=== PATIENT | female | born 1985 | race African-American/Black ===

== ENCOUNTER 2019-01-13 11:37 | Emergency (ER) | payer OTHER ==
[~2019-01-13] VITALS: Ht 157.5 cm; Wt 99.8 kg
[~2019-01-13 11:37] MED LIST: ALBUTEROL INHAL17 GM IH; IBUPROFEN 600600 M1 PO; LORTABELXR PO; NORCO 5-325 TA1 EACH PO
[2019-01-13 11:41] VITALS: BP 130/71
[2019-01-13] MEDS ORDERED: PENICILLIN V P500 MG PO (12:10)
[2019-01-13] MEDS ORDERED: NORCO 5-325 TA1 EACH PO (12:11)
== END 2019-01-13 12:22 | disposition home or self-care (01) ==
LOC: ER 11:37
DX: K08.89 Other specified disorders of teeth and supporting structures (principal); R22.0 Localized swelling, mass and lump, head

== ENCOUNTER 2019-08-29 16:25 | Emergency (ER) | payer BC, OTHER ==
[~2019-08-29] VITALS: Ht 157.5 cm; Wt 99.8 kg
[~2019-08-29 16:25] MED LIST changes: +PENICILLIN V P500 MG PO
[2019-08-29 17:04] LABS: ABSOLUTE NEUTROPHILS 3.8 thou/uL (1.4-8.2); BASOPHILS 0.6 % (0.0-2.0); EOSINOPHILS 2.6 % (0.0-3.0); HEMATOCRIT 36.7 % (37.0-47.0); HEMOGLOBIN 12.3 gm/dL (12.0-15.0); LYMPHOCYTES 28.9 % (24.0-44.0); MCHC 33.6 g/dL (28.0-37.0); MCV 83.2 fL (80.0-100.0); MONOCYTES 11.6 % (1.0-8.0); PLATELET COUNT 247 thou/uL (150-400); POLYS 56.3 % (36.0-66.0); RBC 4.41 mil/uL (4.20-5.00); RDW 16.7 % (10.5-14.5); WBC 6.8 thou/uL (4.0-11.0)
[2019-08-29 17:12] LABS: CALCIUM 9.3 mg/dL (8.5-10.1); POTASSIUM 3.9 mmol/L (3.5-5.1)
[2019-08-29 18:38] LABS: ALBUMIN 3.3 g/dL (3.4-5.0); DIRECT BILIRUBIN < 0.1 mg/dL (<0.1-0.3); SGOT 13 U/L (15-37); SGPT 16 U/L (30-65); TOTAL BILIRUBIN 0.2 mg/dL (<0.1-1.0); TOTAL PROTEIN 7.3 g/dL (6.4-8.2)
[2019-08-29] MEDS ORDERED: PREDNISONE 10 M10 MG PO (20:31)
[2019-08-29] MEDS ORDERED: TESSALON PERLE100 MG PO (20:31)
[2019-08-29] MEDS ORDERED: PROAIR HFA8.5 GM INH (20:31)
[2019-08-29 20:48] VITALS: BP 142/66
--- NOTE | 2019-08-30 08:43 | EKG ---
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
== END 2019-08-29 20:49 | disposition home or self-care (01) ==
LOC: ER 16:25
PROVIDERS: Emergency Medicine; Physician Assistant
DX: M94.0 Chondrocostal junction syndrome [Tietze] (principal); J45.909 Unspecified asthma, uncomplicated; E66.01 Morbid (severe) obesity due to excess calories; F17.200 Nicotine dependence, unspecified, uncomplicated; Z68.41 Body mass index [BMI] 40.0-44.9, adult